=== PATIENT | male | born 2000 | race Caucasian/White ===

== ENCOUNTER 2020-09-02 23:14 | Emergency (ER) | payer SELFPAY ==
[~2020-09-02] VITALS: Ht 180.3 cm; Wt 58.0 kg
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
[2020-09-02] MEDS ORDERED: LIDOCAINE-MPF 1%, 5ML ONE (23:39)
[2020-09-02] MEDS ORDERED: BUPIVACAINE 0.25% ONE (23:39)
[2020-09-02] MEDS ORDERED: ACETAMINOPHEN 500 MG TABLET ONE (23:40)
[2020-09-03] MEDS ORDERED: LIDOCAINE 1%, 2ML INFIL ONE
[2020-09-03] MEDS ORDERED: BUPIVACAINE 0.25% INFIL ONE
[2020-09-03] MEDS ORDERED: ACETAMINOPHEN 500 MG TABLET PO ONE
--- NOTE | 2020-09-03 00:01 | NUR ---
PT LAYING IN BED, PROVIDER DID A DIGITAL BLOCK ON LEFT THUMB, PT REPORTS DIGITAL BLOCK WAS EFFECTIVE, FRIEND AT BEDSIDE, ALL NEEDS IN REACH, CALL LIGHT IN REACH,
[2020-09-03] MEDS ORDERED: BUPIVACAINE 0.25% ONE (00:37)
[2020-09-03] MEDS ORDERED: LIDOCAINE-MPF 1%, 2ML ONE (00:38)
--- NOTE | 2020-09-03 00:43 | NUR ---
PT ASLEEP IN BED, FRIEND ALSO ASLEEP AT BEDSIDE
--- NOTE | 2020-09-03 01:00 | NUR ---
THIS RN IRRIGATED WOUND WITH 500MLS OF STERILE WATER
[2020-09-03] MEDS ORDERED: BACITRACIN ZINC OINT 500U/GM, 0.9 GM ONE (01:42)
[2020-09-03 02:03] VITALS: BP 106/52
== END 2020-09-03 02:05 | disposition home or self-care (01) ==
LOC: ED 23:44
DX: S06.0X0A Concussion without loss of consciousness, initial encounter (principal); S61.012A Laceration without foreign body of left thumb without damage to nail, initial encounter; S00.03XA Contusion of scalp, initial encounter; F17.200 Nicotine dependence, unspecified, uncomplicated; V29.49XA Motorcycle driver injured in collision with other motor vehicles in traffic accident, initial encounter; Y93.89 Activity, other specified; Y92.410 Unspecified street and highway as the place of occurrence of the external cause; Y99.8 Other external cause status
CPT/HCPCS: 11730; 12041; 70450; 99284